=== PATIENT | male | born 1965 | race Caucasian/White ===

== ENCOUNTER 2022-08-21 08:11 | Outpatient (CLI) | payer OTHER, SELFPAY ==
--- NOTE | ~2022-08-21 | NM_ITS ---
NM bone scan whole body INDICATION: Prostate cancer TECHNIQUE: The patient was injected with 26 mCi Tc 99m HDP. Gamma camera images of the region of int erest and whole body were obtained. COMPARISON: None FINDINGS: There is mild symmetric uptake in the shoulders, sternoclavicular joints and right ankle, c onsistent with degenerative joint disease. IMPRESSION: 1: Normal bone scan for age. No scintigraphic evidence for osseous metastases. 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
== END 2022-08-21 08:12 | disposition home or self-care (01) ==
LOC: ANHIMG 08:17
PROVIDERS: PCP Family Medicine; Visit Provider Urology
DX: C61 Malignant neoplasm of prostate (principal)
CPT/HCPCS: 78306; A9561

== ENCOUNTER 2022-08-28 09:05 | Outpatient (CLI) | payer OTHER, SELFPAY ==
--- NOTE | ~2022-08-28 | XR_ITS ---
Clinical Indication: Prostate cancer, smoking history PA and lateral views of the chest: Comparison: None Findings: The lungs are clear, without evidence of focal consolidation or pleural effusion. Cardiome diastinal silhouette is within normal limits. Bones and soft tissues are unremarkable. Impression: Normal chest. Reviewed, dictated and finalized at [facility]. ANGIOGRAPHY Impression: Normal chest.
--- NOTE | ~2022-08-28 | CT_ITS ---
CT Abdomen and Pelvis with contrast. History: Prostate cancer. Spiral CT of the abdomen and pelvis was performed after the administration of intravenous contrast. 1 00 cc of Isovue was administered intravenously without complication. Dose reduction technique was use d on this scan by utilizing automated exposure control and iterative reconstruction technique. The do se-length product (DLP) was 871.65 mGy-cm. Findings: Scans through the lung bases are unremarkable mild atelectatic change. The liver, spleen, pancreas, gallbladder, adrenals and kidneys are within normal limits. No evidence of aortic aneurysm. No lymphadenopathy is seen. There is no evidence of bowel obstruction. There is no evidence to suggest acute appendicitis or dive rticulitis. Images through the pelvis were performed. Urinary bladder unremarkable. No pelvic mass identified. No ascites is seen. No suspicious osseous lesion identified. Impression: No significant abnormality identified. No evidence for metastatic disease identified. Reviewed, dictated and finalized at location [] ER Impression: No significant abnormality identified. No evidence for metastatic disease ident ified.
[2022-08-28 09:36] LABS: Estimated Glomerular Filt Rate > 60
== END 2022-08-28 09:06 | disposition home or self-care (01) ==
LOC: ANHIMG 09:09
PROVIDERS: PCP Family Medicine; Visit Provider Urology
DX: C61 Malignant neoplasm of prostate (principal)
CPT/HCPCS: 71046; 74177; Q9967

== ENCOUNTER 2022-09-26 13:55 | Outpatient (CLI) | payer OTHER, SELFPAY ==
--- NOTE | 2022-09-26 15:10 | ECG_ITS ---
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
[2022-09-26 15:56] LABS: Basophils Absolute Auto 0.1 K/mm3 (0.0-0.1); Basophils Percent Auto 0.4 % (0.2-1.2); Eosinophils Absolute Auto 0.2 K/mm3 (0-0.3); Eosinophils Percent Auto 1.2 % (0-4.4); Hematocrit 43.1 % (42.0-52.0); Hemoglobin 13.8 g/dL (14.0-18.0); Immature Granulocyte Absolute 0.25 K/mm3 (0.00-0.031); Immature Granulocyte Percent A 1.4 % (0-0.5); Lymphocytes Absolute Auto 4.67 K/mm3 (0.9-3.2); Mean Corpuscular Hemoglobin 31.3 pg (26-34); Mean Corpuscular Volume 97.7 fl (80-100); Mean Platelet Volume 9.8 fl (7.4-10.4); Monocytes Percent Auto 5.3 % (2.6-8.5); Neutrophils Absolute Auto 11.8 K/mm3 (1.3-6.7); Neutrophils Percent Auto 65.7 % (45.5-73.1); Platelet Count Result 318 k/mm3 (150-375); Red Blood Count 4.41 M/mm3 (4.6-6.20); Red Cell Distribution Width 13.3 % (11.5-14.5)
[2022-09-26 16:07] LABS: Alanine Aminotransferase 39 U/L (6-50); Albumin Level 4.6 g/dL (3.5-5.1); Alkaline Phosphatase 78 U/L (38-126); Anion Gap 6 mmol/L (8-16); Aspartate Amino Transferase 41 U/L (17-59); Bilirubin,Total 0.3 mg/dL (0.2-1.3); Blood Urea Nitrogen 20 mg/dL (9-20); Calcium 8.8 mg/dL (8.4-10.2); Carbon Dioxide 28 mmol/L (22-30); Chloride 99 mmol/L (98-107); Estimated Glomerular Filt Rate > 60; Glucose 111 mg/dL (65-110); Potassium 3.4 mmol/L (3.4-5.0); Sodium 133 mmol/L (137-145)
[2022-09-26 16:08] LABS: Prothrombin Time 12.5 Seconds (11.1-14.7)
[2022-09-26 16:09] LABS: Partial Thromboplastin Time 24.2 SECONDS (22.3-36.8)
[2022-09-26 16:45] LABS: Bacteria Urine Trace /hpf; Mucus Urine Rare /lpf; RBC Urine 0-2 /hpf (0-2); Squamous Epithelial Cell Urine Rare /hpf (Few); WBC Urine 0-3 /hpf
[2022-09-26 16:50] LABS: Appearance Urine Clear (Clear); Color Urine Yellow (Yellow)
[2022-09-26 16:51] LABS: Add Urine Microscopic? YES; Bilirubin Urine Negative (Negative); Blood Urine Negative (Negative); Glucose Urine UA Negative (Negative); Ketones Urine Trace mg/dL (Negative); Leukocyte Esterase Ur Negative LEU/UL (Negative); Nitrate Urine Negative (Negative); Protein Urine Trace mg/dL (Negative); Specific Grav Ur >= 1.030 (1.001-1.035); Urobilinogen Urine 0.2 mg/dL (<2.0)
== END 2022-09-26 13:56 | disposition home or self-care (01) ==
LOC: ANHSURGERY 13:57
PROVIDERS: PCP Family Medicine; Visit Provider Urology
DX: C61 Malignant neoplasm of prostate (principal); Z01.818 Encounter for other preprocedural examination; I45.10 Unspecified right bundle-branch block
CPT/HCPCS: 36415; 80053; 81001; 85025; 85610; 85730; 86850; 86900; 86901; 93005

== ENCOUNTER 2022-10-05 02:07 | Day surgery (SDC) | payer OTHER, SELFPAY ==
[2022-09-26 14:32] VITALS: BP 141/80; PULSE 102; RESP 16; TEMP 36.7; O2SAT 97; BMI 31.9
--- NOTE | 2022-09-26 14:49 | PC.NURSE ---
Report to the Outpatient Waiting Room, entrance under the green pavilion located off [facility], at time __6:00AM on date __10/05/22 . Planned Procedure Time: __7:30AM . Time changes happen often and if your time is changed the preop area will call you the afternoon before. - You and your visitor will be asked to self-screen and do not enter if you have any COVID symptoms. - Only one visitor is requested with a max of two and NO children visitors are allowed at this time. - The patient visitor may be requested to leave or wait in car when not with patient due to distancing restrictions. - A mask is optional within the hospital. Patients may have clear liquids (water, carbonated beverages, clear teas, apple juice) until 3 hours prior to surgery with a maximum of 20 ounces. - No food from midnight until time of surgery. Take the following medications with a SIP of water the morning of surgery: __AMLODIPINE, LEVOTHYROXINE, HYDROCODONE NEEDED, ALBUTEROL INHALER NEEDED Medications to discontinue per physician ___HOLD CELEBREX, ASPIRIN, VITAMINS/SUPPLEMENTS FOR 7 DAYS PRE-OP Date to take last dose____09/28/22 Please no make-up, nail belarusian, hairspray, perfume, deodorant, or body powder the day of surgery. No jewelry (including any body piercings) or valuables the day of surgery, leave them at home. Please take a shower or bath the night before, or the morning of, surgery with an antibacterial soap. Wear comfortable, loose fitting clothing. Children are encouraged to wear pajamas. - Jewelry must be removed prior to entering the operating room. Rings and piercings that are not removed may be cut off. - The hospital will not accept responsibility for valuables. - Please leave all valuables, including medications, at home the day of surgery. If you are going home after surgery, a licensed peg driver must drive you home. - NO public transportation without another adult if you receive anesthesia. - We recommend that an adult stay with you for 24 hours following discharge. - We also recommend that you do not drive, make important decision, drink alcoholic beverages, or take any drugs that were not prescribed by your health care provider for at least 24 hours after your discharge time. Follow any additional instructions given to you from your surgeon. If you or anyone in your household have experienced Covid symptoms in the past week, please notify your surgeon or the nurse liaison at the phone number below for possible testing. Telephone instructions given to __PATIENT___and asked if any additional questions and then verbalized understanding. Patient advised to call surgeon office or pre surgery nurse liaison [phone] if any additional questions.
--- NOTE | 2022-09-29 13:01 | PM.IMHP ---
H&P: HPI History of Present Illness Date/Time: 09/29/22 13:01 Chief Complaint: Prostate cancer Narrative: pleasant 56-year-old referred recent with a PSA of 9.3. Prostate ultrasound and biopsy revealed 7 of 12 cores with [place] adenocarcinoma 7,8,9 with some intraductal components. Prostate volume by ultrasonography was 30? 4.[address] scan the abdomen pelvis, bone scan and chest x-ray showed no evidence of metastatic disease. After careful discussion of the therapeutic options including active surveillance, radiation therapy deprivation extirpation has latter. He is aware of risk including, but not limited to, need for additional therapy, adverse cardiopulmonary events, rectal injury, erectile dysfunction and urinary incontinence. Review of Systems Cardiovascular: Cardiovascular: Denies chest pain, Denies lightheadedness, Denies palpitations and Denies dyspnea Respiratory: Respiratory: Denies dyspnea Gastrointestinal: Gastrointestinal: Denies diarrhea, Denies nausea and Denies vomiting Genitourinary: Genitourinary: Denies hematuria and Denies dysuria Endocrine: Endocrine: Denies palpitations PMFSH Social History Social History Smoking packs per day: 2 Smoking cigarettes per day: 40.0 Years smoked: 45 Smoking pack-years: 90.00 Smoking status: Current every day smoker Tobacco type: cigarettes Alcohol intake: current Drinks per week: 28 Alcohol use details: WHISKEY Substance use: never Spiritual care concerns: No Meds Home Medications and Allergies Home Medications Medication Instructions Recorded Confirmed Type albuterol sulfate 90 mcg/actuation 2 puff inhalation Q6-8H PRN 09/26/22 09/26/22 History aerosol inhaler Congestion amlodipine 5 mg tablet 5 mg PO QAM 09/26/22 09/26/22 History ascorbic acid (vitamin C) 1,000 mg 3 g PO DAILY 09/26/22 09/26/22 History tablet epqvbjt-avjveblgmdnli-eoowzecw 250 2 tablet PO BID PRN Headache 09/26/22 09/26/22 History mg-250 mg-65 mg tablet (Excedrin Migraine) cefdinir 300 mg capsule 300 mg PO DAILY 09/26/22 09/26/22 History celecoxib 200 mg capsule 200 mg PO QAM 09/26/22 09/26/22 History coenzyme [id number]-[id number] E 100 mg-100 1 cap PO DAILY 09/26/22 09/26/22 History unit capsule famotidine 20 mg tablet 20 mg PO DAILY 09/26/22 09/26/22 History geriatric multivitamin-min 1 tablet PO DAILY 09/26/22 09/26/22 History hydrocodone 7.5 mg-acetaminophen 1 tablet PO Q8-10H PRN Pain 09/26/22 09/26/22 History 325 mg tablet levothyroxine 50 mcg tablet 50 mcg PO QAM 09/26/22 09/26/22 History lisinopril 40 mg tablet 40 mg PO QAM 09/26/22 09/26/22 History prednisone 10 mg tablet See Rx Instructions .Route .COMPLEX 09/26/22 09/26/22 History rosuvastatin 10 mg tablet 10 mg PO DAILY 09/26/22 09/26/22 History Allergies Allergy/AdvReac Type Severity Reaction Status Date / Time No Known Allergies Allergy Verified 09/26/22 14:17 Exam Const: General: no acute distress Resp: Effort & Inspection: normal respiratory effort GI: Inspection: non-distended GI Palp: No abdominal tenderness and No Guarding due to palpation present (GI) Auscultation: normal bowel sounds Assessment and Plan Assessment and plan (1) Prostate cancer: Code(s): C61 - Malignant neoplasm of prostate Status: Acute Assessment and Plan: robotic assisted laparoscopic radical prostatectomy and bilateral pelvic lymphadenectomy
--- NOTE | 2022-10-04 12:15 | WPDANESEPPF ---
Anes - Initial Pre Proc Eval Procedure: Operation Date: 10/05/22 07:30 Proposed Procedures p Robotic Assisted Laparoscopic Prostatectomy with Bilateral Pelvic Lymph Node Dissection - Mike Quispe MD Date/Time: 10/04/22 12:15 Surgeon: Mike Quispe MD Pre Op Diagnosis: prostate CA Patient Data Age: 56 Gender: M Height: 1.7 m Weight: 92.5 kg Last Vital Signs Temp 36.7 C 09/26/22 14:32 Pulse 102 H 09/26/22 14:32 Resp 16 09/26/22 14:32 BP 141/80 H 09/26/22 14:32 Pulse Ox 97 09/26/22 14:32 O2 Del Method Room Air 09/26/22 14:32 Allergies Allergy/AdvReac Type Severity Reaction Status Date / Time No Known Allergies Allergy Verified 10/05/22 06:47 Home Medications Medication Instructions Recorded Confirmed Type albuterol sulfate 90 mcg/actuation 2 puff inhalation Q6-8H PRN 09/26/22 10/05/22 History aerosol inhaler Congestion amlodipine 5 mg tablet 5 mg PO QAM 09/26/22 10/05/22 History ascorbic acid (vitamin C) 1,000 mg 3 g PO DAILY 09/26/22 10/05/22 History tablet uzcfskn-hyusemesrwotm-eusyrfcu 250 2 tablet PO BID PRN Headache 09/26/22 10/05/22 History mg-250 mg-65 mg tablet (Excedrin Migraine) celecoxib 200 mg capsule 200 mg PO QAM 09/26/22 10/05/22 History coenzyme V74-hjalzhx E 100 mg-100 1 cap PO DAILY 09/26/22 10/05/22 History unit capsule famotidine 20 mg tablet 20 mg PO DAILY 09/26/22 10/05/22 History geriatric multivitamin-min 1 tablet PO DAILY 09/26/22 10/05/22 History hydrocodone 7.5 mg-acetaminophen 1 tablet PO Q8-10H PRN Pain 09/26/22 10/05/22 History 325 mg tablet levothyroxine 50 mcg tablet 50 mcg PO QAM 09/26/22 10/05/22 History lisinopril 40 mg tablet 40 mg PO QAM 09/26/22 10/05/22 History rosuvastatin 10 mg tablet 10 mg PO DAILY 09/26/22 10/05/22 History Patient hx anesthesia problems: none Family hx anesthesia problems: none Results Review: All pre-operative results and documents have been reviewed as part of the pre-operative evaluation. [facility] Past Medical History Medical History (Updated 10/04/22 @ 12:16 by Stewart Pedroza DO) Chronic, continuous use of opioids COPD (chronic obstructive pulmonary disease) GERD (gastroesophageal reflux disease) Hyperlipidemia Hypertension Hypothyroidism Osteoarthritis Prostate cancer Social History Social History Smoking packs per day: 2 Smoking cigarettes per day: 40.0 Years smoked: 45 Smoking pack-years: 90.00 Smoking status: Current every day smoker Tobacco type: cigarettes Alcohol intake: current Drinks per week: 28 Alcohol use details: PLACIDO Substance use: never Living arrangements: alone Spiritual care concerns: No Anes - Eval Final PreProcedure Day of Procedure 10/04/22 12:15 Patient weight: obese Heart: regular rate and rhythm Lungs: clear to auscultation Airway: Mallampati scale class II Neurological: alert and oriented Last oral intake: >/= 8 hours ASA classification: III Emergent: no Anesthetic plan: proceed Anesthesia type and monitoring: general ETT and standard monitoring Results Review: All pre-operative results and documents have been reviewed as part of the pre-operative evaluation. Informed Consent: The patient's anesthetic plan and its attendant risks and benefits were discussed with the patient/family/POA. Questions were solicited and answers provided to the satisfaction of the patient/family/POA.
[2022-10-05] VITALS (23 sets, daily range): BP systolic 115–167; BP diastolic 57–84; PULSE 99–111; RESP 10–18; TEMP 36.7–37.3; O2SAT 91–100
[2022-10-05] MEDS: LACTATED RINGERS 1,000 ML 30 ML IV CONT ×2 (06:23→10:57)
--- NOTE | 2022-10-05 06:29 | WPDHPUPDATE1 ---
History and Physical Update Update Date/Time: 10/05/22 06:29 History and Physical has been reviewed, including an updated exam of the patient. There are NO changes in the patient's condition. Risks, benefits, and alternatives have been discussed and questions answered. Patient agrees to proceed with procedure.
[2022-10-05 06:31] LABS: White Blood Count 11.2 K/mm3 (4.5-10.0)
[2022-10-05] MEDS: ceFAZolin 2 GM/D5W 50 ML 2 GM/50 ML BAG IVPB (07:29)
--- NOTE | 2022-10-05 10:51 | W.PM.PROC2 ---
Procedure Note - Detailed Date of Procedure 10/05/22 Pre-op Diagnosis Prrostate CA Post-op Diagnosis Same Procedure Performed Robotic assisted laparoscopic radical prostatectomy with bilateral pelvic lymphadenectomy Surgeon Mike Quispe MD Anesthesia General Description of Procedure The patient was brought to the operative suite, where he was prepped and draped in routine sterile fashion while in a dorsal lithotomy, deep Trendelenburg position. A supraumbilical 10 mm trocar was placed after insufflation of the abdomen with a Veress needle. Three robotic ports were then placed under direct vision. Two of these were placed in the right lower quadrant - 10 cm and 20 cm lateral to, and in line with, the umbilicus. A third robotic trocar was placed 10 cm to the left of the umbilicus, and 20 cm to the left of the umbilicus, a 12 mm standard laparoscopic trocar was placed to be used as an assistant producer port. Lastly, a 5 mm trocar was placed in the left upper quadrant midway between the umbilicus and the left robotic trocar. Attention was then turned to the prostatectomy. I opted for a posterior approach in this patient. An incision was made in the parietal peritoneum along the posterior bladder/posterior prostate about 2 cm above the reflection of the peritoneum over the anterior rectum. The seminal vesicles and vas deferens were immediately identified. Dissection is undertaken in a fashion so as to avoid electrocautery as much as possible, particularly near the tips of the seminal vesicles. Dissection was also carried out in the midline so as to avoid any encounters with the ureters. The vas deferens and the seminal vesicles were dissected in their entirety to the base of the prostate. The plane anterior to Denoviller's fascia, anterior to the rectum and posterior to the prostate was then developed. I then dropped the bladder by incising the anterior parietal peritoneum just lateral to the median umbilical ligaments bilaterally. The bladder was dropped from the anterior abdominal and pelvic wall. The endopelvic fascia was identified and incised bilaterally, allowing for dissection of the posterior-lateral aspect of the prostate. The puboprostatic ligaments were transected near their origin from the posterior pubic ramus. This posterior lateral dissection of the prostate is also undertaken in a fashion so as to avoid electrocautery as much as possible. The dorsal vein of the penis is then secured with an 0 -Vicryl ligature. Attention is then turned to the bladder neck. The anterior bladder neck is incised at the vesico-prostatic junction. The previously placed urethral catheter was drawn through the urethrotomy. A very small bladder neck was maintained throughout the remainder of this dissection. The posterior bladder neck was incised in a fashion so as to avoid any injury to the ureteral orifices. Again, the small aperture of the bladder neck was maintained. The previously dissected vas deferens and the seminal vesicles were brought through the posterior bladder neck incision. The lateral prostatic pedicles were then carefully dissected from the lateral aspect of the prostate bilaterally. The prostatic pedicles were secured with Weck clips and transected. The neurovascular bundles were carefully dissected from the posterior-lateral aspect of the prostate. The dorsal vein of the penis was incised with electrocautery. Using cold scissors, the urethra was incised. After withdrawing the previously placed urethral catheter, the posterior urethra was sharply incised, as was the rectalurethralis muscle. Attention was then turned to an extended bilateral pelvic lymphadenectomy. The limits of this dissection were similar bilaterally. Specifically, the limits were the bifurcation of the common iliac vein proximally, the inguinal ligament distally, the obturator nerve posteriorly and the anterior aspect to the external iliac artery laterally. This dissectio
[2022-10-05] MEDS: fentaNYL CITRATE INJ (*CRX) 100 MCG/2 ML VIAL 25 MCG IV PUSH ×4 (11:05→13:38)
--- NOTE | 2022-10-05 12:00 | SUR.PHASEI ---
Patient meets PACU discharge criteria, unit bed unavailable at this time. Patient placed in extended recovery status.
--- NOTE | 2022-10-05 14:45 | ADMGEN ---
This patient, Jose Luis Casarez, was admitted to Medical Room 253-01. Patient/family oriented to hospital policies and general routines including ID bracelet, bed and alarms, visiting hours, pain management, procedures, bathroom and other care routines, personal items, smoking policy, room service/diet, and visiting hours. Information on how to activate the Rapid Response Team has been discussed. Patient/Family are encouraged to report perceived risks to care and to ask questions if they do not understand what they are told or what they should do.
[2022-10-05] MEDS: LACTATED RINGERS 1,000 ML 125 ML IV CONT (15:25)
[2022-10-05] MEDS: MORPHINE SULFATE (*CRX) 2 MG/ML INJ IV PUSH (15:37)
[2022-10-05] MEDS: HYDROcodone/acetaminophen (*CRX) 7.5-325 MG TABLET 1 TAB PO (20:04)
[2022-10-06] MEDS: LACTATED RINGERS 1,000 ML 125 ML IV CONT
[2022-10-06] MEDS: HYDROcodone/acetaminophen (*CRX) 7.5-325 MG TABLET 1 TAB PO ×2 (00:01→03:55)
[2022-10-06 00:23] VITALS: BP 147/79; PULSE 98; RESP 16; TEMP 36.1; O2SAT 93
[2022-10-06] MEDS: ALBUTEROL SULFATE (*SP) AEROSOL 1 PUFF 2 PUFF INHALATION (04:13)
[2022-10-06 04:23] VITALS: BP 104/81; PULSE 95; RESP 16; TEMP 36.7; O2SAT 93
[2022-10-06 05:46] LABS: Hematocrit 33.3 % (42.0-52.0); Hemoglobin 10.4 g/dL (14.0-18.0)
[2022-10-06 06:02] LABS: Anion Gap 3 mmol/L (8-16); Blood Urea Nitrogen 11 mg/dL (9-20); Calcium 8.3 mg/dL (8.4-10.2); Carbon Dioxide 31 mmol/L (22-30); Chloride 97 mmol/L (98-107); Estimated CRCL calculation 94 ml/min; Estimated Glomerular Filt Rate > 60; Glucose 115 mg/dL (65-110); Sodium 131 mmol/L (137-145)
[2022-10-06] MEDS: LEVOTHYROXINE SODIUM 50 MCG TABLET PO (06:31)
--- NOTE | 2022-10-06 07:24 | WPDUROPN2 ---
Progress Note: A&P Assessment and Plan (1) Prostate cancer: Code(s): C61 - Malignant neoplasm of prostate Status: Acute Assessment and Plan: Doing well POD #1 s/p RALP Home after breakfast Subjective Subjective Date/Time Seen: 10/06/22 07:24 Comfortable, tolerating diet and activity Review of Systems Cardiovascular: Cardiovascular: Denies chest pain, Denies lightheadedness, Denies palpitations and Denies dyspnea Respiratory: Respiratory: Denies dyspnea Gastrointestinal: Gastrointestinal: Denies diarrhea, Denies nausea and Denies vomiting Genitourinary: Genitourinary: Denies hematuria and Denies dysuria Endocrine: Endocrine: Denies palpitations Exam Const: General: no acute distress Resp: Effort & Inspection: normal respiratory effort GI: Inspection: non-distended and other (incisions clean and dry) GI Palp: No abdominal tenderness and No Guarding due to palpation present (GI) Auscultation: normal bowel sounds Urinary Catheter: Urinary Catheter: patent and draining and urine clear Objective Data Vital Signs Vital Signs: Vital Signs - 24 hr 10/05/22 10:57 10/05/22 11:10 10/05/22 11:25 Temperature Pulse Rate 104 H 99 105 H Respiratory Rate 14 14 12 Blood Pressure 167/76 H 160/84 H 167/78 H Pulse Oximetry 100 100 100 Oxygen Delivery Simple Face Mask Simple Face Mask Simple Face Mask Oxygen Flow Rate 6 10 6 10/05/22 11:32 10/05/22 11:40 10/05/22 11:55 Temperature Pulse Rate 104 H 106 H Respiratory Rate 12 16 Blood Pressure 145/73 H 151/67 H Pulse Oximetry 93 96 Oxygen Delivery Room Air Nasal Cannula Nasal Cannula Oxygen Flow Rate 2 2 10/05/22 12:10 10/05/22 12:25 10/05/22 12:40 Temperature Pulse Rate 100 109 H 106 H Respiratory Rate 12 14 14 Blood Pressure 143/64 H 130/72 141/71 H Pulse Oximetry 98 99 95 Oxygen Delivery Nasal Cannula Nasal Cannula Nasal Cannula Oxygen Flow Rate 2 2 2 10/05/22 12:55 10/05/22 13:10 10/05/22 13:25 Temperature Pulse Rate 104 H 102 H 105 H Respiratory Rate 12 12 16 Blood Pressure 120/59 L 115/57 L 118/66 Pulse Oximetry 91 94 95 Oxygen Delivery Nasal Cannula Nasal Cannula Nasal Cannula Oxygen Flow Rate 2 2 2 10/05/22 13:40 10/05/22 14:10 10/05/22 14:37 Temperature Pulse Rate 105 H 108 H 106 H Respiratory Rate 10 L 12 16 Blood Pressure 124/65 122/75 126/68 Pulse Oximetry 94 95 97 Oxygen Delivery Nasal Cannula Nasal Cannula Nasal Cannula Oxygen Flow Rate 2 2 2 10/05/22 14:53 10/05/22 15:21 10/05/22 15:23 Temperature 98.0 F 99.1 F 99.1 F Pulse Rate 105 H 111 H 106 H Respiratory Rate 18 18 18 Blood Pressure 137/66 131/63 140/71 Pulse Oximetry 95 94 96 Oxygen Delivery Oxygen Flow Rate 10/05/22 15:56 10/05/22 16:23 10/05/22 17:19 Temperature 99.1 F Pulse Rate 108 H Respiratory Rate 18 Blood Pressure 131/74 Pulse Oximetry 95 97 96 Oxygen Delivery Nasal Cannula Nasal Cannula Oxygen Flow Rate 2 1 10/05/22 20:23 10/05/22 20:00 10/06/22 00:23 Temperature 98.6 F 97.0 F L Pulse Rate 104 H 98 Respiratory Rate 16 16 Blood Pressure 127/65 147/79 H Pulse Oximetry 94 94 93 Oxygen Delivery Nasal Cannula Oxygen Flow Rate 1 Intake/Output Intake/Output: Intake & Output 10/03/22 10/04/22 10/05/22 10/06/22 23:59 23:59 23:59 23:59 Intake Total 2470 1600 Output Total 550 Balance 1920 1600 Meds/Results Medications: Active Medications Generic Name Dose Route Start Last Admin Trade Name Freq PRN Reason Stop Dose Admin Acetaminophen/Aspirin/Caffeine 2 tablet 10/05/22 14:38 Acetaminophen/Aspirin/Caffeine 250-250-65 Mg Tablet PO BID PRN Headache Hydrocodone Bitart/Acetaminophen 1 tab 10/05/22 15:31 Hydrocodone/Acetaminophen (*Crx) 5-325 Mg Tablet PO Q4H PRN Pain Rated 4-6 Hydrocodone Bitart/Acetaminophen 1 tab 10/05/22 17:43 10/06/22 03:55 Hydrocodone/Acetaminophen (*Crx) 7.5-325 Mg Tablet PO 1 tab Q4H PRN
--- NOTE | 2022-10-06 07:29 | PM.DS ---
DS: Admitting Diagnosis Discharge Date 10/06/2022 Admitting Diagnosis Prostate cancer DS: Summary Hospital Course Hospital Course: This patient was admitted on the morning of his planned robotic prostatectomy. This procedure was uneventful, as was his postoperative course. By the evening of the procedure he was sitting at the bedside in tolerating a liquid diet. The following morning he was ambulating freely and tolerating regular food. His catheter drainage remained essentially clear throughout. His postoperative hemoglobin and serum creatinine were unremarkable. At the time of discharge he has been instructed in appropriate care for his Duffy catheter with both a leg bag and bedside bag. He will be discharged with plans to follow-up in 1 week with a cystogram. Time Spent with Patient Time attestation: Total time spent providing and/or coordinating discharge services: DS: Data Data Completed and Pending Pending studies at discharge: Pending at discharge 10/05/22 10:17 Surgical [PTH] Routine Labs on day of discharge: Labs from last 24 hours 10/06/22 10/06/22 05:31 05:31 Hgb 10.4 L D Hct 33.3 L Sodium 131 L Potassium 4.0 Chloride 97 L Carbon Dioxide 31 H Anion Gap 3 L BUN 11 D Creatinine 0.80 Estim Creat Clear Calc 94 Estimated GFR > 60 Glucose 115 H Calcium 8.3 L Discharge Plan Discharge Patient Disposition: Home, Self-Care Discharge Instructions: 1) Duffy catheter -> leg bag / bedside bag at night. 2) No lifting/straining >15lbs. x3 weeks. 3) No driving x1-week. 4) Resume normal, pre-operative diet. 5) My office will contact regarding follow-up in 1-week with cystogram. Stand Alone Forms: General Discharge Instructions Discharge Orders: Discharge Order (Routine); Ordered 10/06/22 Ordered By: Mike Quispe Discharge Medications: New hydrocodone-acetaminophen 5-325 mg tablet 1 - 2 tablet PO Q6H PRN (Reason: pain) Qty: 20 0RF ciprofloxacin HCl 500 mg tablet 500 mg PO Q12H Qty: 10 0RF hyoscyamine sulfate 0.125 mg tablet 0.125 mg PO Q6H PRN (Reason: bladder spasms) Qty: 20 2RF docusate sodium [Colace] 100 mg capsule 100 mg PO DAILY Qty: 30 0RF Continued celecoxib 200 mg capsule 200 mg PO QAM amlodipine 5 mg tablet 5 mg PO QAM levothyroxine 50 mcg tablet 50 mcg PO QAM hydrocodone-acetaminophen 7.5-325 mg tablet 1 tablet PO Q8-10H PRN (Reason: Pain) Rx Instructions: SCIATIC PAIN albuterol sulfate 90 mcg/actuation HFA aerosol inhaler 2 puff INHALATION Q6-8H PRN (Reason: Congestion) lisinopril 40 mg tablet 40 mg PO QAM rosuvastatin 10 mg tablet 10 mg PO DAILY ascorbic acid (vitamin C) 1,000 mg Tablet 3 g PO DAILY geriatric multivitamin-min Tablet 1 tablet PO DAILY coenzyme [id number] E 100-100 mg-unit Capsule 1 cap PO DAILY Excedrin Migraine 250-250-65 mg Tablet 2 tablet PO BID PRN (Reason: Headache) famotidine 20 mg Tablet 20 mg PO DAILY Attending physician on admission: Mike Quispe
[2022-10-06 07:31] VITALS: O2SAT 95
[2022-10-06] MEDS: lisinopriL 20 MG TABLET 40 MG PO (08:07)
[2022-10-06] MEDS: ROSUVASTATIN 10 MG TABLET PO (08:07)
[2022-10-06] MEDS: levoFLOXacin 500 MG TABLET PO (08:07)
[2022-10-06] MEDS: FAMOTIDINE 20 MG TABLET PO (08:08)
[2022-10-06] MEDS: amLODIPine BESYLATE 5 MG TABLET PO (08:08)
[2022-10-06 08:23] VITALS: BP 110/60; PULSE 114; RESP 18; TEMP 36.8; O2SAT 93
== END 2022-10-06 09:20 | disposition home or self-care (01) ==
LOC: ANHSURGERY 05:56 → ANH2MED 16:41
PROVIDERS: PCP Family Medicine; Visit Provider Urology
PROC: 0VT04ZZ Resection of Prostate, Percutaneous Endoscopic Approach (ICD-10-PCS; CPT 55867; principal; 2022-10-05 07:30)
DX: C61 Malignant neoplasm of prostate (principal); I10 Essential (primary) hypertension; E78.5 Hyperlipidemia, unspecified; E03.9 Hypothyroidism, unspecified; J44.9 Chronic obstructive pulmonary disease, unspecified; K21.9 Gastro-esophageal reflux disease without esophagitis; Z79.891 Long term (current) use of opiate analgesic; Z79.51 Long term (current) use of inhaled steroids; F17.210 Nicotine dependence, cigarettes, uncomplicated; E66.9 Obesity, unspecified; Z68.31 Body mass index [BMI] 31.0-31.9, adult
CPT/HCPCS: 55866; 38571; S2900; 36415; 80048; 80053; 81001; 85014; 85018; 85025; 85048; 85610; 85730; 86850; 86900; 86901; 88305; 88309; 93005; A9270; J0131; J0690; J1100; J1170; J2250; J2270; J2370; J2405; J2704; J2710; J3010; J7030; J7120

== ENCOUNTER 2022-10-13 13:06 | Outpatient (CLI) | payer OTHER, SELFPAY ==
--- NOTE | ~2022-10-13 | XR_ITS ---
EXAMINATION: XR cystogram DATE: 10/13/2022 13:46 INDICATION: Prostate cancer status post prostatectomy. TECHNIQUE: Water-soluble contrast was gravity-infused through the patient's Duffy catheter. Multiple fluoroscopic images were obtained. Fluoroscopy exposure time was 0.3 minutes. The total number of kayla ges was 7. COMPARISON: None. FINDINGS: There is no extraluminal leakage of contrast. No ureteral reflux. IMPRESSION: 1. No extraluminal leakage of contrast. Reviewed, dictated and finalized at location A. [facility]
== END 2022-10-13 13:07 | disposition home or self-care (01) ==
PROVIDERS: PCP Family Medicine; Visit Provider Urology
DX: C61 Malignant neoplasm of prostate (principal)
CPT/HCPCS: 51600; 74430; Q9967